=== PATIENT | female | born 1990 | race Caucasian/White ===

== ENCOUNTER 2018-03-09 10:00 | Inpatient (IN) | payer OTHER ==
[~2018-03-09] VITALS: Ht 154.9 cm; Wt 63.0 kg
[2018-04-05] MEDS ORDERED: IRON325 MG PO (04:41)
[2018-04-05] MEDS ORDERED: PRENATAL FORMU1 EAC1 PO (04:41)
== END 2018-04-07 12:21 | disposition home or self-care (01) | DRG 775 ==
LOC: LDR 04-05 01:03 → OB/GYN 04-05 01:03 → LDR 04-05 06:33 → OB/GYN 04-05 17:49
PROC: 10E0XZZ Delivery of Products of Conception, External Approach (ICD-10-PCS; principal; 2018-04-05)
PROC: 0W8NXZZ Division of Female Perineum, External Approach (ICD-10-PCS; 2018-04-05)
PROC: 4A1HXCZ Monitoring of Products of Conception, Cardiac Rate, External Approach (ICD-10-PCS; 2018-04-05)
DX: O80 Encounter for full-term uncomplicated delivery (principal); Z3A.39 39 weeks gestation of pregnancy; Z37.0 Single live birth

== ENCOUNTER 2018-03-30 08:14 | Outpatient (CLI) | payer OTHER | END 2018-03-30 09:57 | disposition home or self-care (01) | LOC: NST 08:14 | DX: Z34.03 Encounter for supervision of normal first pregnancy, third trimester (principal) ==

== ENCOUNTER 2018-04-03 09:28 | Outpatient (CLI) | payer OTHER | END 2018-04-03 10:14 | disposition home or self-care (01) | LOC: NST 09:28 | DX: Z34.83 Encounter for supervision of other normal pregnancy, third trimester (principal) ==

== ENCOUNTER 2020-02-15 09:30 | Inpatient (IN) | payer OTHER ==
[~2020-02-15] VITALS: Ht 154.9 cm; Wt 62.6 kg
[~2020-02-15 09:30] MED LIST: IRON325 MG PO; PRENATAL FORMU1 EAC1 PO
== END 2020-03-08 13:13 | disposition home or self-care (01) | DRG 807 ==
LOC: LDR 03-06 05:27 → OB/GYN 03-06 05:27 → SURG-SUITE 03-07 15:07 → SURH 03-14 09:30
PROVIDERS: ADMIT Obstetrics & Gynecology; ATTEND Obstetrics & Gynecology
PROC: 10E0XZZ Delivery of Products of Conception, External Approach (ICD-10-PCS; principal; 2020-03-06)
PROC: 0HQ9XZZ Repair Perineum Skin, External Approach (ICD-10-PCS; 2020-03-06)
PROC: 4A0HXFZ Measurement of Products of Conception, Cardiac Rhythm, External Approach (ICD-10-PCS; 2020-03-06)
DX: O70.0 First degree perineal laceration during delivery (principal); Z37.0 Single live birth; Z3A.38 38 weeks gestation of pregnancy
CPT/HCPCS: 240